=== PATIENT | male | born 1990 | race Caucasian/White ===

== ENCOUNTER 2020-07-03 10:04 | Inpatient (IN) | payer OTHER ==
[~2020-07-03] VITALS: Ht 175.3 cm; Wt 101.3 kg
[2020-07-03] MEDS ORDERED: DIVA-85 PO (10:21)
[2020-07-03 11:24] LABS: BASOPHILS % (AUTO) 0.8 % (0.0-2.0); EOSINOPHILS % (AUTO) 1.6 % (1.0-6.0); HEMATOCRIT 43.5 % (41-53); HEMOGLOBIN 15.1 g/dL (13.5-17.5); LYMPHOCYTES # (AUTO) 1.4 K/uL (1.0-4.8); LYMPHOCYTES % (AUTO) 25.4 % (22.0-44.0); MEAN CORPUSCULAR HEMOGLOBIN 28.6 pg (26.0-34.0); MEAN CORPUSCULAR HGB CONC 34.8 G/dL (31.0-37.0); MEAN CORPUSCULAR VOLUME 82 fL (80-100); MONOCYTES # (AUTO) 0.5 K/uL (0.1-1.0); MONOCYTES % (AUTO) 8.9 % (2.0-9.0); NEUTROPHILS # (AUTO) 3.6 K/uL (1.8-7.7); NEUTROPHILS % (AUTO) 63.3 % (40.0-70.0); PLATELET COUNT (AUTO) 269 K/uL (150-450); RED BLOOD CELL COUNT(AUTO) 5.28 MIL/uL (4.50-5.90); RED CELL DISTRIBUTION WIDTH 12.7 % (11.5-14.5)
[2020-07-03 11:43] LABS: COVID AG,FIA SOURCE NASOPHARYNGEAL
[2020-07-03 11:50] LABS: ANION GAP 7 mmol/L (8-16); CALCIUM, TOTAL 8.7 mg/dL (8.8-10.5); CARBON DIOXIDE 27 mmol/L (22-29); CHLORIDE 99 mmol/L (98-107); CREATININE 0.74 mg/dL (0.60-1.30); GLOMERULAR FILTR. RATE CALC > 60 mL/min (>60); GLUCOSE,RANDOM 107 mg/dL (70-110); POTASSIUM 3.8 mmol/L (3.5-5.1); SODIUM SERUM 133 mmol/L (136-145); UREA NITROGEN, BLOOD 13 mg/dL (7-18)
[2020-07-03 11:56] LABS: ALANINE AMINOTRANSFERASE 153 U/L (12-78); ALBUMIN 3.7 g/dL (3.4-5.0); ALKALINE PHOSPHATASE 128 U/L (46-116); ASPARTATE AMINOTRANSFERASE 61 U/L (15-37); BILIRUBIN,TOTAL 0.6 mg/dL (0.1-1.0); TOTAL PROTEIN, SERUM 7.7 g/dL (6.4-8.2)
[2020-07-03] MEDS ORDERED: ONDANSETRON HCL 4 MG/2 ML VIAL IVP PRN ×2 (12:30)
[2020-07-03] MEDS ORDERED: MAGNESIUM HYDROXIDE SUSPENSION 30 ML UDCUP PO PRN (12:30)
[2020-07-03] MEDS ORDERED: ACETAMINOPHEN 325 MG TABLET PO PRN (12:30)
[2020-07-03] MEDS ORDERED: 0.9% SODIUM CHLORIDE 10 ML SYRINGE IVP PRN (12:30)
[2020-07-03 12:34] LABS: AMPHET/METH SCREEN,URINE POSITIVE (NEGATIVE); BARBITURATE SCREEN, URINE NEGATIVE (NEGATIVE); BENZODIAZEPINES SCREEN,URINE NEGATIVE (NEGATIVE); CANNABINOID SCREEN,URINE NEGATIVE (NEGATIVE); COCAINE SCREEN,URINE NEGATIVE (NEGATIVE); METHADONE SCREEN, URINE NEGATIVE (NEGATIVE); OPIATE SCREEN,URINE POSITIVE (NEGATIVE); PHENCYCLIDINE SCREEN,URINE NEGATIVE (NEGATIVE)
[2020-07-03] MEDS ORDERED: SODIUM CHLORIDE 0.9% 1,000 ML IV ONE (12:45)
[2020-07-03 14:02] VITALS: BP 129/81
[2020-07-03 19:50] VITALS: BP 135/96
[2020-07-03] MEDS: ACETAMINOPHEN 325 MG TABLET PO PRN (20:51)
[2020-07-04 04:38] VITALS: BP 128/83
[2020-07-04 08:03] VITALS: BP 135/83
[2020-07-04] MEDS: FAMOTIDINE 20 MG TABLET PO SCH (08:33)
[2020-07-04] MEDS: ACETAMINOPHEN 325 MG TABLET PO PRN (13:27)
[2020-07-04 15:19] VITALS: BP 131/88
[2020-07-04 19:34] VITALS: BP 120/71
[2020-07-05 04:22] VITALS: BP 137/94
[2020-07-05] MEDS: FAMOTIDINE 20 MG TABLET PO SCH (08:02)
[2020-07-05 08:17] VITALS: BP 134/78
[2020-07-05 12:04] VITALS: BP 132/90
[2020-07-05 16:06] VITALS: BP 130/77
[2020-07-05 20:17] VITALS: BP 138/81
[2020-07-06 04:56] VITALS: BP 140/91
[2020-07-06 07:48] VITALS: BP 122/61
[2020-07-06] MEDS: FAMOTIDINE 20 MG TABLET PO SCH (09:03)
[2020-07-06] MEDS ORDERED: DIVA-85 PO (12:10)
== END 2020-07-06 13:05 | DRG 897 ==
LOC: EMS 10:14 → 6S 12:49
PROVIDERS: ADMIT Internal Medicine; ATTEND Internal Medicine
DX: F15.10 Other stimulant abuse, uncomplicated (principal); Z79.899 Other long term (current) drug therapy; Z20.828 Contact with and (suspected) exposure to other viral communicable diseases
CPT/HCPCS: 87426; G0480